=== PATIENT | female | born 1975 | race Caucasian/White ===

== ENCOUNTER 2019-06-05 09:58 | Emergency (ER) | payer OTHER, SELFPAY ==
[2019-06-05 10:15] VITALS: BP 115/71; PULSE 84; RESP 20; TEMP 36.8; O2SAT 99
--- NOTE | 2019-06-05 11:07 | ED.URI ---
HPI - URI/Sore Throat General Chief Complaint: Upper Respiratory Infection Stated Complaint: sinus facial pressure no taste achey Time Seen by Provider: 06/05/19 11:07 Source: patient and RN notes reviewed Mode of arrival: ambulatory Limitations: no limitations History of Present Illness HPI Narrative: 44-year-old female who presents to express care with complaints of facial pressure,nasal congestion, ears feel plugged, tired, body aches, and headache for the past 4 days. Patient denies any sore throat or chest congestion, denies any fevers chills or sweats. Patient states that she took some Claritin for 2 days but it didn't seem to help so she has been taking Tylenol cold and sinus with minimal improvement. Patient denies any cough, shortness of breath or wheezing, no tachypnea or accessory muscle use noted, SAO2 99% on room air. MD elicited complaint: rhinorrhea, nasal congestion and sinus pain Pertinent past history: seasonal allergies Onset (ago): day(s) (4) Consistency: constant Severity: mild Pain scale (0-10): 3 Description of mucous: clear Able to tolerate fluids by mouth: Yes Exacerbating factors: nothing Relieving factors: nothing Associated symptoms: myalgias, headache, rhinorrhea, nasal congestion and ear pain (pressure) Treatments prior to arrival: cold medicine and other (claritin) Related Data Allergies Allergy/AdvReac Type Severity Reaction Status Date / Time No Known Allergies Allergy Verified 06/05/19 10:45 Review of Systems Review of Systems: Narrative: CONSTITUTIONAL: Denies fever, chills, or sweats. EYES: Denies visual changes, redness, or discharge. ENT: Positive clear rhinorrhea, congestion, no sore throat,ear fullness CARDIOVASCULAR: Denies chest pain, palpitations, or edema. RESPIRATORY: Denies cough or dyspnea. GASTROINTESTINAL: Denies abdominal pain, nausea, vomiting, or diarrhea. GENITOURINARY: Denies dysuria or hematuria. SKIN: Denies rash or itching. MUSCULOSKELETAL: Denies back pain, joint pain, or myalgia. NEUROLOGIC: positive frontal headache,no numbness, or weakness. PSYCHIATRIC: Denies anxiety or depression. All systems reviewed & are unremarkable except as noted in HPI and below PMFSH Past Medical History Medical History (Updated 06/06/19 @ 20:44 by Daya Shannon NP) Seasonal allergies Social History Social History (Updated 06/05/19 @ 20:22 by Daya Shannon NP) Smoking status: Never smoker Gender identity (if verbalized by the patient): Female Comments At time of signature, agree with nursing past medical, surgical, social history. There is no relevant family history pertinent to the presenting complaint Exam Narrative: Exam Narrative: GENERAL: Well-appearing, well-nourished, and in no acute distress. HEAD: Normocephalic, atraumatic. EYES: PERRLA and EOMI. ENT: Nares mild redness, clear rhinorrhea, no epistaxis, facial pressure.. Mucous membranes moist.TM's normal with good light reflex, throat pink with no swelling, lesions or exudates, no tonsil enlargement. NECK: Supple.no lymphadenopathy CHEST: Clear to auscultation. No respiratory distress, no cough noted, SAO2 99% on room air HEART: Regular rate and rhythm. No murmur heard. Normal peripheral pulses. ABDOMEN: Soft, nontender, nondistended, normal active bowel sounds. EXTREMITIES: Normal range of motion. No edema. SKIN: Warm, dry, no rash. NEURO: No focal deficits. Alert and oriented x3. Course Vital Signs Vital signs: Vital Signs Temperature 36.8 C 06/05/19 10:15 Pulse Rate 84 06/05/19 10:15 Respiratory Rate 06/05/19 10:15 Blood Pressure 115/71 06/05/19 10:15 Pulse Oximetry 99 06/05/19 10:15 Temperature 36.8 C 06/05/19 10:15 Pulse Rate 84 06/05/19 10:15 Respiratory Rate 06/05/19 10:15 Blood Pressure 115/71 06/05/19 10:15 Pulse Oximetry 99 06/05/19 10:15 MDM - URI/Sore Throat Differential Diagnosis Differential diagnosis: Likely upper respiratory infection,
== END 2019-06-05 11:35 | disposition home or self-care (01) ==
PROVIDERS: Emergency Provider Registered Nurse
DX: J06.9 Acute upper respiratory infection, unspecified (principal); J30.2 Other seasonal allergic rhinitis
CPT/HCPCS: 99213; G0463